=== PATIENT | male | born 1955 | race Caucasian/White ===

== ENCOUNTER 2017-02-06 17:42 | Emergency (ER) | payer MEDICAID ==
[~2017-02-06] VITALS: Ht 170.2 cm; Wt 56.6 kg
[~2017-02-06 17:42] MED LIST: BEN50 PO
[2017-02-06 17:44] VITALS: Ht 170.2 cm; Wt 56.6 kg
[2017-02-06] MEDS ORDERED: ACETAMINOPHEN 500 MG TAB PO STA (18:01)
--- NOTE | 2017-02-06 19:11 | RADRPT ---
PROCEDURE: XR Chest. CLINICAL INDICATION: Fever and cough TECHNIQUE: AP upright chest radiograph COMPARISON: No pertinent prior examinations were submitted for comparison. FINDINGS: There is eventration of the left hemidiaphragm. The cardiomediastinal silhouette is normal. Calcified granuloma overlying the posterior left eighth rib and calcified mediastinal lymph node are seen. Focal interstitial density is seen in the right upper lobe. There is bibasilar linear scarring or atelectasis. No focal consolidation, pleural effus ion or pneumothorax is seen. The osseous structures are intact. IMPRESSION: Focal interstitial density in the right upper lobe. Acute infiltrate is not excluded. Old granulomatous disease. Physician Flavio Date Time Electronically viewed and signed by Physician Flavio on 02/06/2017 19:10 /
[2017-02-06] MEDS ORDERED: ACET500C5 PO (19:21)
[2017-02-06] MEDS ORDERED: AZIT250T94 PO (19:21)
[2017-02-06] MEDS ORDERED: BENZ100C70 PO (19:21)
[2017-02-06] MEDS ORDERED: CEFTRIAXONE 1 GM INJ IM ONE (19:30)
[2017-02-06] MEDS ORDERED: LIDOCAINE 1% (MDV) 20 ML INJ SC ONE (19:30)
[2017-02-06 19:33] VITALS: TEMP 98.5
--- NOTE | 2017-02-06 20:00 | ERD ---
ER Documentation Chief Complaint Date/Time DATE: 02/06/17 TIME: 19:55 Chief Complaint PT with fever, cough, bone pain, CWP, ST X 2 days. HPI 61-year-old male patient with a past medical history of hypertension complaining of fever, productive cough, sore throat, body aches that started intermittently for 2 days. Patient reports that he has been taking NyQuil and Advil without any relief of his symptoms. Patient reports that when he coughs, it worsens his sore throat. Denies any chest pain, shortness of breath, wheezing, dyspnea on exertion, orthopnea, nausea, vomiting, diarrhea. ROS All systems reviewed and are negative except as per history of present illness. Medications Home Meds Active Scripts Acetaminophen* (Tylophen*) 500 Mg Capsule, 1 CAP PO Q6H Y for PAIN AND OR ELEVATED TEMP, #20 CAP Prov:INOCENCIA MONTOYA-Nancy 02/06/17 Benzonatate* (Tessalon Perle*) 100 Mg Capsule, 100 MG PO Q8H Y for COUGH, #20 CAP Prov:INOCENCIA MONTOYA-Nancy 02/06/17 Azithromycin* (Zithromax*) 250 Mg Tablet, 250 MG PO .ZPACK DIRECTED, #6 TAB TAKE 500 MG (2 TABS) THE FIRST DAY THEN 250 MG (1 TAB) DAYS 2-5 Prov:INOCENCIA MONTOYA-Nancy 02/06/17 Diphenhydramine Hcl* (Benadryl*) 50 Mg Cap, 50 MG PO Q6H Y for swelling, #30 CAP Prov:JAVED MARTIN ANALYST BUSINESS ANALYSIS 03/07/15 Allergies Allergies: Coded Allergies: No Known Allergy (Unverified , 02/06/17) PMhx/Soc Medical and Surgical Hx: pt denies Medical Hx History of Surgery: Yes (bilateral knee miniscus surgeries) Anesthesia Reaction: No Hx Neurological Disorder: No Hx Respiratory Disorders: No Hx Cardiac Disorders: No Hx Psychiatric Problems: No Hx Miscellaneous Medical Probl: No Hx Alcohol Use: No Hx Substance Use: No Hx Tobacco Use: Yes Smoking Status: Current every day smoker Physical Exam Vitals Vital Signs Date Time Temp Pulse Resp B/P Pulse Ox O2 Delivery O2 Flow Rate FiO2 02/06/17 19:33 98.5 02/06/17 17:44 100.2 84 18 146/86 97 Physical Exam Const: Zew-ric-fialysmcn, well-nourished. In no acute distress. Head: Atraumatic, normocephalic Eyes: Normal Conjunctiva without injection. No purulent discharge. PERRL. EOMI ENT: Normal external ear. Ear canal without erythema. Tympanic membrane pearly leyva without effusion or bulging. Nasal canal clear with normal turbinates. Moist oropharynx without tonsillar exudates. Non-erythematous pharynx. Uvula midline. No drooling. No trismus. Neck: Full range of motion. No meningismus. No cervical lymphadenopathy. Resp: Clear to auscultation bilaterally. No wheezing, rhonchi, rales, or crackles. No accessory muscle use. No retractions. Cardio: Regular rate and rhythm. No murmurs, rubs or gallops. Abd: Soft, non tender, non distended. Normal bowel sounds. No palpable masses. No rebound tenderness. No guarding. Skin: No petechiae or rashes Back: No midline tenderness. No CVA tenderness. Ext: No cyanosis, or edema. Neur: Awake and alert. Psych: Normal Mood and Affect Results 24 hrs Current Medications Medications (Trade) Dose Ordered Sig/Lexi Route PRN Reason Start Time Stop Time Status Last Admin Dose Admin Acetaminophen (Tylenol Tab) 500 mg ONCE STAT PO 02/06/17 18:01 02/06/17 18:03 DC 02/06/17 18:09 Ceftriaxone Sodium (Rocephin) 1 gm ONCE ONCE IM 02/06/17 19:30 02/06/17 19:31 DC 02/06/17 19:27 Lidocaine (Xylocaine 1% (Mdv) 20 ml) 20 ml ONCE ONCE SC 02/06/17 19:30 02/06/17 19:31 DC 02/06/17 19:27 Procedures/MDM 61-year-old male patient with no significant past medical history of hypertension presents to the ED complaining of a productive cough, body aches, sore throat, fever that started 2 days ago. A chest x-ray was ordered to further evaluate patient. PROCEDURE: XR Chest. CLINICAL INDICATION: Fever and cough TECHNIQUE: AP upright chest radiograph COMPARISON: No pertinent prior examinations were submitted for comparison. FINDINGS: There is eventration of the left hemidiaphragm. The cardiomediastinal silhouette is normal. Calcified granuloma overlying the posterior left eighth rib and calcified mediastinal lymph node are seen. Focal interstitial density is seen in the right upper lobe. There is bibasilar linear scarring or atelectasis. No focal consolidation, pleural effusion or pneumothorax is seen. The osseous structures are intact. IMPRESSION: Focal interstitial density in the right upper lobe. Acute infiltrate is not excluded. Old granulomatous disease. This patient presents to the ED with symptoms consistent with possible pneumonia. Patient is afebrile and has normal vital signs. Patient's physical exam include lungs which were clear to auscultation and a normal pulse oximetry. There is a low suspicion for Nayan's angina, pneumothorax, mononucleosis, pulmonary embolism, epiglottitis, otitis media, otitis externa, viral/strep pharyngitis, sinusitis, peritonsillar abscess, mastoiditis, retropharyngeal abscess, meningitis, sepsis, acute abdomen or other emergent conditions. Fluids, rest, and symptomatic treatment are recommended for the management of patient's symptoms. Discharge medications: Zithromax, Tylenol, Tessalon Perles Patient was instructed to return to the ED for any new or worsening symptoms. They should otherwise follow up with the primary care provider within 1-2 days. The patient's questions were answered at the time of discharge. Patient understood and agreed with discharge management. Departure Diagnosis: Primary Impression: Cough Condition: Stable Patient Instructions: What Is Pneumonia? Referrals: COMMUNITY CLINICS YOU HAVE RECEIVED A MEDICAL SCREENING EXAM AND THE RESULTS INDICATE THAT YOU DO NOT HAVE A CONDITION THAT REQUIRES URGENT TREATMENT IN THE EMERGENCY DEPARTMENT. FURTHER EVALUATION AND TREATMENT OF YOUR CONDITION CAN WAIT UNTIL YOU ARE SEEN IN YOUR DOCTORS OFFICE WITHIN THE NEXT 1-2 DAYS. IT IS YOUR RESPONSIBILITY TO MAKE AN APPOINTMENT FOR FOLOW-UP CARE. IF YOU HAVE A PRIMARY DOCTOR --you should call your primary doctor and schedule an appointment IF YOU DO NOT HAVE A PRIMARY DOCTOR YOU CAN CALL OUR PHYSICIAN REFERRAL HOTLINE AT IF YOU CAN NOT AFFORD TO SEE A PHYSICIAN YOU CAN CHOSE FROM THE FOLLOWING [facility] CLINICS [facility] [address] [facility] [address] [facility]. [facility] [address] [facility] [address] [facility] [facility] [address] [facility]. [facility]. [address] [facility]. [facility] YOU HAVE RECEIVED A MEDICAL SCREENING EXAM AND THE RESULTS INDICATE THAT YOU DO NOT HAVE A CONDITION THAT REQUIRES URGENT TREATMENT IN THE EMERGENCY DEPARTMENT. FURTHER EVALUATION AND TREATMENT OF YOUR CONDITION CAN WAIT UNTIL YOU ARE SEEN IN YOUR DOCTORS OFFICE WITHIN THE NEXT 1-2 DAYS. IT IS YOUR RESPONSIBILITY TO MAKE AN APPOINTMENT FOR FOLOW-UP CARE. IF YOU HAVE A PRIMARY DOCTOR --you should call your primary doctor and schedule and appointment IF YOU DO NOT HAVE A PRIMARY DOCTOR YOU CAN CALL OUR PHYSICIAN REFERRAL HOTLINE AT . IF YOU CAN NOT AFFORD TO SEE A PHYSICIAN YOU CAN CHOSE FROM THE FOLLOWING [facility] INSTITUTIONS: [facility] [address] [place] [address] [facility] [address] [place], [place] [id number] [place] [address] [address] [place] [address] [facility] URGENT CARE/SPECIALTIES Additional Instructions: Llame al doctor MAANA y suzanne hunter MAYELA PARA DENTRO DE 2-3 AMADOR.Dgale a la secretaria que nosotros le instruimos hacer esta mayela.Avise o llame si lucio condicin se empeora antes de la mayela. Regresa aqui si peor o no mejor. INOCENCIA MONTOYA PA-C Feb 06, 2017 20:00 INOCENCIA MONTOYA PA-C Feb 06, 2017 20:00
== END 2017-02-06 19:34 | disposition home or self-care (01) ==
LOC: FTE 17:42
DX: R05 Cough (principal); I10 Essential (primary) hypertension; F17.210 Nicotine dependence, cigarettes, uncomplicated
CPT/HCPCS: 71010; 96372; J0696; Z7502; Z7610

== ENCOUNTER 2017-07-09 09:35 | Emergency (ER) | END 2017-07-09 11:08 | disposition home or self-care (01) ==

== ENCOUNTER 2017-08-31 08:54 | Emergency (ER) | END 2017-08-31 11:46 | disposition home or self-care (01) ==

== ENCOUNTER 2017-12-02 06:29 | Emergency (ER) | END 2017-12-02 08:58 | disposition home or self-care (01) ==